=== PATIENT | female | born 1945 | race Caucasian/White ===

== ENCOUNTER 2019-02-07 21:25 | Emergency (ER) | payer MEDICARE, OTHER ==
[~2019-02-07] VITALS: Ht 154.9 cm; Wt 68.0 kg
[~2019-02-07 21:25] MED LIST: Adult Low Dose81 MG; CLOP75; Lisinopril2.5 MG; METF500; TRAZ50; [UNRECOGNIZED DRUG - OTHER]
[2019-02-07] MEDS ORDERED: Percocet 5-3251 EACH PO ×2 (22:00→22:16)
== END 2019-02-07 22:18 | disposition home or self-care (01) ==
LOC: ER 21:25
DX: S50.02XA Contusion of left elbow, initial encounter (principal); E11.9 Type 2 diabetes mellitus without complications; Z91.040 Latex allergy status; Z79.899 Other long term (current) drug therapy; Z79.01 Long term (current) use of anticoagulants; Z79.84 Long term (current) use of oral hypoglycemic drugs; W01.0XXA Fall on same level from slipping, tripping and stumbling without subsequent striking against object, initial encounter
CPT/HCPCS: 73080; 99283-25; A9270